=== PATIENT | male | born 1965 | race Caucasian/White ===

== ENCOUNTER 2021-08-21 17:09 | Emergency (ER) | payer OTHER, SELFPAY ==
[2021-08-21 17:18] VITALS: BP 133/80; PULSE 77; RESP 16; TEMP 36.3; O2SAT 99
--- NOTE | 2021-08-21 18:16 | ED.SKABFB ---
HPI - Skin/Abscess/Foreign Bdy General Chief complaint: Skin/Abscess/Foreign Body Stated complaint: Rash Time Seen by Provider: 08/21/21 18:16 Source: patient, RN notes reviewed and old records reviewed Mode of arrival: ambulatory Limitations: no limitations History of Present Illness HPI narrative: 55-year-old male who presents to [facility] with complaints of rash to chin sides of bilateral eyes, left ear and right side of his nose and to genital area since yesterday. He reports that he was working in the yard and thinks he must of come in contact with either poison tejas or oak. He reports that rash is spreading and is very itchy and irritating, rates his discomfort as 7/10.Patient denies any shortness of breath or any difficulty swallowing. Patient has used OTC products without resolution of his symptoms. Related Data Allergies Allergy/AdvReac Type Severity Reaction Status Date / Time No Known Allergies Allergy Mild Verified 08/21/21 17:35 Review of Systems Review of Systems: CONSTITUTIONAL: Denies fever, chills, or sweats. EYES: Denies visual changes, redness, or discharge. ENT: Denies rhinorrhea, congestion, sore throat, or otalgia. CARDIOVASCULAR: Denies chest pain, palpitations, or edema. RESPIRATORY: Denies cough or dyspnea. GASTROINTESTINAL: Denies abdominal pain, nausea, vomiting, or diarrhea. GENITOURINARY: Denies dysuria or hematuria. SKIN: Positive red rash scattered diffuse with itching. MUSCULOSKELETAL: Denies back pain, joint pain, or myalgia. NEUROLOGIC: Denies headache, numbness, or weakness. PSYCHIATRIC: Positive for history of anxiety or depression. All systems reviewed & are unremarkable except as noted in HPI and below PMFSH Past Medical History Medical History (Updated 08/22/21 @ 10:40 by Mariela Patrick NP) Anxiety Depression Surgical History Surgical History (Updated 08/22/21 @ 10:40 by Mariela Patrick NP) Hx of right knee surgery torn cartilage Social History Social History (Updated 08/22/21 @ 10:41 by Mariela Patrick NP) Smoking status: Never smoker Alcohol intake: current Alcohol use details: rare Substance use: never Substance use type: does not use Living arrangements: with family Gender identity (if verbalized by the patient): Male Comments At time of signature, agree with nursing past medical, surgical, social and family history. There is no relevant family history pertinent to the presenting complaint Exam Narrative: GENERAL: Well-appearing, well-nourished, and in no acute distress. HEAD: Normocephalic, atraumatic. EYES: PERRLA and EOMI. ENT: Nares clear, no rhinorrhea or epistaxis. Mucous membranes moist.TM's normal with good light reflex, throat normal NECK: Supple.no lymphadenopathy CHEST: Clear to auscultation. No respiratory distress.no cough, wheezing or any dyspnea, SAO2 99% on room air HEART: Regular rate and rhythm. No murmur heard. Normal peripheral pulses. ABDOMEN: Soft, nontender, nondistended, normal active bowel sounds. EXTREMITIES: Normal range of motion. No edema. SKIN: Warm, dry, red raised scattered diffuse rash noted to chin, left ear, bilateral sides of eyes and right side of nose and in genital area that is itchy, reports is spreading NEURO: No focal deficits. Alert and oriented x3. Course Course Level of Care: Express Care Visit Vital Signs Vital signs: Vital Signs Temperature 36.3 C L 08/21/21 17:18 Pulse Rate 77 08/21/21 17:18 Respiratory Rate 16 08/21/21 17:18 Blood Pressure 133/80 08/21/21 17:18 Pulse Oximetry 99 08/21/21 17:18 Temperature 36.3 C L 08/21/21 17:18 Pulse Rate 77 08/21/21 17:18 Respiratory Rate 16 08/21/21 17:18 Blood Pressure 133/80 08/21/21 17:18 Pulse Oximetry 99 08/21/21 17:18 MDM - Skin/Abscess/Foreign Bdy MDM Narrative Medical decision making narrative: Patient received Solu-Medrol 80 mg IM while in clinic with no reaction noted Differential Diagnosis Diff
[2021-08-21] MEDS: methylPREDNISolone ACETATE 80 MG/ML VIAL IM (18:39)
== END 2021-08-21 19:00 | disposition home or self-care (01) ==
PROVIDERS: Emergency Provider Registered Nurse
DX: L25.9 Unspecified contact dermatitis, unspecified cause (principal)
CPT/HCPCS: 96372; 99213; G0463; J1040

== ENCOUNTER 2024-10-19 09:32 | Outpatient (CLI) | payer BC, SELFPAY ==
--- NOTE | ~2024-10-19 | MR_ITS ---
MRI of the lumbar spine Clinical History: Spinal stenosis Technique: Axial T2-weighted images, and sagittal T1-weighted, T2-weighted, and and T2 fat-sat images were acquired. Findings: There is no fracture or subluxation of the lumbar spine. Vertebral bodies maintain normal h eight and alignment. No bone marrow signal abnormality seen. At L1-L2, there is no disc bulge or herniation. No spinal canal stenosis or neural foraminal narrowin g. At L2-L3, there is no significant disc bulge or herniation. No spinal canal stenosis or neural forami nal narrowing. At L3-L4, there is minimal disc bulge with mild facet arthropathy. No central canal stenosis or neura l foraminal narrowing. At L4-L5, there is mild disc bulge, most prominent at the left foraminal region, with minimal facet a rthropathy. No central canal stenosis. Neural foramina are preserved. At L5-S1, there is no disc bulge or herniation. No spinal canal stenosis or neural foraminal narrowin g. Paravertebral soft tissues are unremarkable. Impression: Mild degenerative change, as above. Reviewed, dictated and finalized at location M. Impression: Mild degenerative change, as above.
== END 2024-10-19 09:33 | disposition home or self-care (01) ==
LOC: GOSHIMG 09:33
PROVIDERS: PCP Family Medicine; Visit Provider Family Medicine
DX: M47.816 Spondylosis without myelopathy or radiculopathy, lumbar region (principal); M48.061 Spinal stenosis, lumbar region without neurogenic claudication
CPT/HCPCS: 72148